=== PATIENT | male | born 1970 | race Caucasian/White ===

== ENCOUNTER 2020-04-21 10:27 | Emergency (ER) | payer OTHER | END 2020-04-21 12:40 | LOC: ED 10:27 | DX: Z02.89 Encounter for other administrative examinations (principal) ==

== ENCOUNTER 2020-04-21 10:27 | Emergency (ER) | payer BC ==
[~2020-04-21] VITALS: Ht 188 cm; Wt 79.4 kg
[2020-04-21 10:33] VITALS: Ht 188 cm; Wt 79.4 kg
[2020-04-21 12:40] VITALS: BP 159/112
== END 2020-04-21 12:40 ==
LOC: ED 10:27
DX: R03.0 Elevated blood-pressure reading, without diagnosis of hypertension (principal)